=== PATIENT | female | born 1970 | race African-American/Black ===

== ENCOUNTER 2021-09-25 11:13 | Emergency (ER) | payer OTHER ==
[2021-09-25] MEDS ORDERED: Ketorolac Tromethamine 30 MG/ML VIAL ONE (12:09)
== END 2021-09-25 12:17 | disposition home or self-care (01) ==
LOC: CSHERS 11:13
DX: K02.9 Dental caries, unspecified (principal); K03.81 Cracked tooth; E78.5 Hyperlipidemia, unspecified; E78.00 Pure hypercholesterolemia, unspecified; I10 Essential (primary) hypertension
CPT/HCPCS: 96372; 99282; J1885